=== PATIENT | female | born 1970 | race Caucasian/White ===

== ENCOUNTER → 2016-08-03 | Outpatient (CLI) | payer BC ==
--- NOTE | 2016-08-05 11:36 | MM ---
Reason for exam: screening (asymptomatic). Last mammogram was performed 1 year and 1 month ago. History: Patient is postmenopausal and is nulliparous. Took hormonal contraceptives for 3 years beginning at age 28. Physical Findings: A clinical breast exam by your physician is recommended on an annual basis and results should be correlated with mammographic findings. MG Screening Mammo w CAD Bilateral CC and MLO view(s) were taken. Prior study comparison: July 07, 2015, bilateral MG 3d screening mammo w/cad. October 04, 2009, bilateral digital screening mammogram. The breast tissue is heterogeneously dense. This may lower the sensitivity of mammography. There is no discrete abnormality. ASSESSMENT: Negative, BI-RAD 1 RECOMMENDATION: Routine screening mammogram of both breasts in 1 year.
== END | disposition home or self-care (01) ==
LOC: RADMAMWWP 09:46
PROVIDERS: ATTEND Family Medicine
DX: Z12.31 Encounter for screening mammogram for malignant neoplasm of breast (principal)

== ENCOUNTER → 2017-08-14 | Outpatient (CLI) | payer BC ==
--- NOTE | 2017-08-18 10:56 | MM ---
Reason for exam: screening (asymptomatic). Last mammogram was performed 1 year ago. History: Patient is postmenopausal and is nulliparous. Took hormonal contraceptives for 3 years beginning at age 28. Physical Findings: A clinical breast exam by your physician is recommended on an annual basis and results should be correlated with mammographic findings. MG Screening Mammo w CAD Bilateral CC and MLO view(s) were taken. Prior study comparison: August 03, 2016, bilateral MG screening mammo w CAD. July 07, 2015, bilateral MG 3d screening mammo w/cad. The breast tissue is heterogeneously dense. This may lower the sensitivity of mammography. There is no discrete abnormality. No significant changes when compared with prior studies. ASSESSMENT: Negative, BI-RAD 1 RECOMMENDATION: Routine screening mammogram of both breasts in 1 year.
== END | disposition home or self-care (01) ==
LOC: RADMAMWWP 16:16
PROVIDERS: ATTEND Family Medicine
DX: Z12.31 Encounter for screening mammogram for malignant neoplasm of breast (principal)
CPT/HCPCS: 77067

== ENCOUNTER → 2018-09-25 | Outpatient (CLI) | payer BC ==
--- NOTE | 2018-09-29 13:12 | MM ---
Reason for exam: screening (asymptomatic). Last mammogram was performed 1 year and 1 month ago. History: Patient is postmenopausal and is nulliparous. Took hormonal contraceptives for 3 years beginning at age 28. Physical Findings: A clinical breast exam by your physician is recommended on an annual basis and results should be correlated with mammographic findings. MG Screening Mammo w CAD Bilateral CC and MLO view(s) were taken. Prior study comparison: August 14, 2017, bilateral MG screening mammo w CAD. August 03, 2016, bilateral MG screening mammo w CAD. There are scattered fibroglandular densities. There is no discrete abnormality. No significant changes when compared with prior studies. ASSESSMENT: Negative, BI-RAD 1 RECOMMENDATION: Routine screening mammogram of both breasts in 1 year.
== END | disposition home or self-care (01) ==
LOC: RADMAMWWP 13:22
PROVIDERS: ATTEND Family Medicine
DX: Z12.31 Encounter for screening mammogram for malignant neoplasm of breast (principal)
CPT/HCPCS: 77067

== ENCOUNTER → 2019-12-15 | Outpatient (CLI) | payer BC ==
--- NOTE | 2019-12-16 13:15 | MM ---
Reason for exam: screening (asymptomatic). Last mammogram was performed 1 year and 3 months ago. History: Patient is postmenopausal and is nulliparous. Took hormonal contraceptives for 3 years beginning at age 28. Physical Findings: A clinical breast exam by your physician is recommended on an annual basis and results should be correlated with mammographic findings. MG Screening Mammo w CAD Bilateral CC and MLO view(s) were taken. Prior study comparison: September 25, 2018, bilateral MG screening mammo w CAD. August 14, 2017, bilateral MG screening mammo w CAD. There are scattered fibroglandular densities. No significant changes when compared with prior studies. ASSESSMENT: Benign, BI-RAD 2 RECOMMENDATION: Routine screening mammogram of both breasts in 1 year.
== END | disposition home or self-care (01) ==
LOC: RADMAMWWP 07:20
PROVIDERS: ATTEND Family Medicine
DX: Z12.31 Encounter for screening mammogram for malignant neoplasm of breast (principal)
CPT/HCPCS: 77067

== ENCOUNTER 2020-01-11 08:15 | Day surgery (SDC) | payer BC ==
[2020-01-06 14:40] VITALS: BMI 29.2
[~2020-01-11 08:15] MED LIST: LACTATED RINGERS 1,000 ML IV SCH; LIDOCAINE 1% (10MG/ML) FOR IV START INTRADERMA PRN
[2020-01-11] MEDS ORDERED: LACTATED RINGERS 1,000 ML IV ONE (08:33)
[2020-01-11 08:52] VITALS: RESP 16; TEMP 98.1
[2020-01-11] MEDS ORDERED: PROPOFOL 10 MG/ML 20 ML VIAL IV ONE (09:06)
--- NOTE | 2020-01-11 09:11 | P.GSHP ---
History of Present Illness H&P Date: 01/11/20 Chief Complaint: Colon cancer screening Patient here today for colonoscopy. She has not had a colonoscopy before. No bowel related complaints. No family history of colon cancer. Past Medical History Additional Past Medical History / Comment(s): seasonal allergies History of Any Multi-Drug Resistant Organisms: None Reported Past Surgical History: Hernia Repair Past Anesthesia/Blood Transfusion Reactions: Motion Sickness Smoking Status: Never smoker Medications and Allergies Home Medications Medication Instructions Recorded Confirmed Type No Known Home Medications 01/06/20 01/11/20 History Allergies Allergy/AdvReac Type Severity Reaction Status Date / Time Sulfa (Sulfonamide Allergy Anaphylaxis Verified 01/11/20 08:39 Antibiotics) Surgical - Exam Vital Signs Temp Pulse Resp BP Pulse Ox 98.1 F 96 16 144/75 97 01/11/20 08:50 01/11/20 08:50 01/11/20 08:50 01/11/20 08:50 01/11/20 08:50 Physical exam: General: Well-developed, well-nourished HEENT: Normocephalic, sclerae nonicteric Abdomen: Nontender, nondistended Extremities: No edema Neuro: Alert and oriented Assessment and Plan (1) Colon cancer screening Narrative/Plan: Will proceed with colonoscopy Current Visit: Yes Status: Acute Code(s): Z12.11 - ENCOUNTER FOR SCREENING FOR MALIGNANT NEOPLASM OF COLON SNOMED Code(s): 666782855
--- NOTE | 2020-01-11 09:21 | P.PCN ---
Date of Procedure: 01/11/20 Procedure(s) Performed: PREOPERATIVE DIAGNOSIS: Colon cancer screening POSTOPERATIVE DIAGNOSIS: Normal exam PROCEDURE: Colonoscopy ANESTHESIA: MAC SURGEON: Carl Maradiaga M.D. SPECIMENS: None ENDOSCOPIC PROCEDURE: The patient was placed on the endoscopy table in the left decubitus position. The Olympus colonoscope was inserted into the anus and passed under direct visualization to the base of the cecum. The appendiceal orifice was visualized. From that point the scope was slowly withdrawn inspecti ng all surfaces carefully. There were no neoplastic inflammatory or polypoid lesions throughout the cecum, ascending, transverse, descending, sigmoid and rectum. There was no visible diverticulosis noted. Digital rectal examination was normal. The patient was taken to the recovery room in stable condition per anesthesia guidelines. RECOMMENDATIONS: Increase fiber. Follow-up colonoscopy 10 years.
[2020-01-11 09:28] VITALS: BP 98/68; PULSE 105
== END 2020-01-11 09:59 | disposition home or self-care (01) ==
LOC: ORWHC2ENDO 08:15
PROVIDERS: ATTEND Surgery
DX: Z12.11 Encounter for screening for malignant neoplasm of colon (principal); E66.9 Obesity, unspecified; J30.2 Other seasonal allergic rhinitis; Z88.2 Allergy status to sulfonamides; Z98.890 Other specified postprocedural states; Z68.31 Body mass index [BMI] 31.0-31.9, adult
CPT/HCPCS: J2704; G0121

== ENCOUNTER → 2020-12-28 | Outpatient (CLI) | payer BC ==
--- NOTE | 2020-12-29 09:03 | MM ---
Reason for exam: screening (asymptomatic). Last mammogram was performed 1 year ago. History: Patient is postmenopausal and is nulliparous. Took hormonal contraceptives for 3 years beginning at age 28. Physical Findings: A clinical breast exam by your physician is recommended on an annual basis and results should be correlated with mammographic findings. MG Screening Mammo w CAD Bilateral CC and MLO view(s) were taken. Prior study comparison: December 15, 2019, bilateral MG screening mammo w CAD. September 25, 2018, bilateral MG screening mammo w CAD. August 14, 2017, bilateral MG screening mammo w CAD. July 07, 2015, bilateral MG 3d screening mammo w/cad. There are scattered fibroglandular densities. Stable anterior central asymmetric density left MLO view. No significant changes when compared with prior studies. ASSESSMENT: Negative, BI-RAD 1 RECOMMENDATION: Routine screening mammogram of both breasts in 1 year.
== END | disposition home or self-care (01) ==
LOC: RADMAMWWP 06:59
PROVIDERS: ATTEND Family Medicine
DX: Z12.31 Encounter for screening mammogram for malignant neoplasm of breast (principal); Z78.0 Asymptomatic menopausal state
CPT/HCPCS: 77067

== ENCOUNTER → 2022-01-11 | Outpatient (CLI) | payer BC ==
--- NOTE | 2022-01-14 19:44 | MM ---
Reason for Exam: Screening (asymptomatic). Last mammogram was performed 1 year(s) and 1 month(s) ago. Patient History: Menarche at age 11. Patient has no children. Postmenopausal. Hormonal Contraceptives for 3 years from age 28 until age 31. Risk Values: Joyce 5 year model risk: 1.2%. NCI Lifetime model risk: 9.6%. Prior Study Comparison: 09/25/2018 Bilateral Screening Mammogram, [facility]. 12/15/2019 Bilateral Screening Mammogram, [facility]. 12/28/2020 Bilateral Screening Mammogram, [facility]. Tissue Density: The breast tissue is heterogeneously dense. This may lower the sensitivity of mammography. Findings: Analyzed By CAD. On the right, there is nodular asymmetric density medially at a middle to posterior depth on the cc view that is more defined. Further evaluation is recommended. On the left, there is outer central focal asymmetry at anterior depth that is also more defined. Further evaluation is recommended. Overall Assessment: Incomplete: need additional imaging evaluation, BI-RAD 0 Management: Special View Mammogram of both breasts. 1. On the right, to include spot 3-D CC, 3-D CC rolled lateral, and 3-D LM views. 2. On the left, to include spot 3-D CC, spot 3-D MLO, 3-D lateral views. 3. Targeted ultrasound of either breast if any persisting abnormality. [facility] will attempt to contact patient to return for supplemental views and ultrasound if indicated. Electronically signed and approved by: Ish Blake M.D. Radiologist
== END | disposition home or self-care (01) ==
LOC: RADMAMWWP 09:21
PROVIDERS: ATTEND Family Medicine
DX: Z12.31 Encounter for screening mammogram for malignant neoplasm of breast (principal); Z78.0 Asymptomatic menopausal state
CPT/HCPCS: 77067

== ENCOUNTER → 2022-01-16 | Outpatient (CLI) | payer BC ==
--- NOTE | 2022-01-16 14:22 | MM ---
Reason for Exam: Additional evaluation requested from abnormal screening. Last screening mammogram was performed less than 1 month ago. Patient History: Menarche at age 11. Patient has no children. Postmenopausal. Hormonal Contraceptives for 3 years from age 28 until age 31. Risk Values: Joyce 5 year model risk: 1.2%. NCI Lifetime model risk: 9.6%. Prior Study Comparison: 12/15/2019 Bilateral Screening Mammogram, [facility]. 12/28/2020 Bilateral Screening Mammogram, [facility]. 01/11/2022 Bilateral MG screening mammo w CAD, [facility]. Tissue Density: The breast tissue is heterogeneously dense. This may lower the sensitivity of mammography. Findings: Analyzed By CAD. On the right, the medial asymmetric density disperses on additional views. On the left, the central nodular focal asymmetry also disperses. No suspicious persisting and probably is seen. Findings compatible with superimposition shadow on both sides. Overall Assessment: Benign, BI-RAD 2 Management: Screening Mammogram of both breasts in 1 year. 1. Patient should continue monthly self breast exams. 2. A clinical breast exam by your physician is recommended on an annual basis. 3. This exam should not preclude additional follow-up of suspicious palpable abnormalities. Results were given to the patient verbally at the time of exam. Electronically signed and approved by: Ish Blake M.D. Radiologist
== END | disposition home or self-care (01) ==
LOC: RADMAMWWP 13:26
PROVIDERS: ATTEND Family Medicine
DX: R92.8 Other abnormal and inconclusive findings on diagnostic imaging of breast (principal); Z78.0 Asymptomatic menopausal state
CPT/HCPCS: 77066

== ENCOUNTER → 2023-01-17 | Outpatient (CLI) | payer BC ==
--- NOTE | 2023-01-20 15:26 | MM ---
Reason for Exam: Screening (asymptomatic). Last screening mammogram was performed 12 month(s) ago. Patient History: Menarche at age 11. Patient has no children. Postmenopausal. Hormonal Contraceptives for 3 years from age 28 until age 31. Risk Values: Joyce 5 year model risk: 1.2%. NCI Lifetime model risk: 9.4%. Prior Study Comparison: 08/03/2016 Bilateral Screening Mammogram, [facility]. 08/14/2017 Bilateral Screening Mammogram, [facility]. 09/25/2018 Bilateral Screening Mammogram, [facility] 12/15/2019 Bilateral Screening Mammogram, [facility]. 12/28/2020 Bilateral Screening Mammogram, [facility] 01/11/2022 Bilateral MG screening mammo w CAD, [facility]. 01/16/2022 Bilateral MG work up mamm w CAD BILAT, [facility]. Tissue Density: The breast tissue is heterogeneously dense. This may lower the sensitivity of mammography. Findings: Analyzed By CAD. Pattern appears symmetrical and stable. No significant interval change is evident. Benign calcifications within the left breast. No suspicious groups of microcalcifications, spiculated or lobular masses, architectural distortion or other secondary signs of malignancy are mammographically apparent. Overall Assessment: Benign, BI-RAD 2 Management: Screening Mammogram of both breasts in 1 year. A negative mammogram report should not preclude additional follow up of suspicious palpable abnormalities. Patient should continue monthly self breast exam. A clinical breast exam by your physician is recommended on an annual basis and results should be correlated with mammographic findings. Electronically signed and approved by: Arthur Ramos D.O. Radiologis
== END | disposition home or self-care (01) ==
LOC: RADMAMWWP 08:34
PROVIDERS: ATTEND Family Medicine
DX: Z12.31 Encounter for screening mammogram for malignant neoplasm of breast (principal); Z78.0 Asymptomatic menopausal state
CPT/HCPCS: 77067

== ENCOUNTER → 2024-01-23 | Outpatient (CLI) | payer BC ==
--- NOTE | 2024-02-09 11:04 | MM ---
Reason for Exam: Screening (asymptomatic). Last screening mammogram was performed 12 month(s) ago. Patient History: Menarche at age 11. Patient has no children. Postmenopausal. Hormonal Contraceptives for 3 years from age 28 until age 31. Risk Values: Joyce 5 year model risk: 1.3%. NCI Lifetime model risk: 9.3%. Prior Study Comparison: 01/11/2022 Bilateral MG screening mammo w CAD, [facility]. 01/16/2022 Bilateral MG work up mamm w CAD BILAT, [facility]. 01/17/2023 Bilateral MG screening mammo w CAD, [facility]. Tissue Density: The breasts are heterogeneously dense, which may obscure small masses. Findings: Analyzed By CAD. There is no suspicious group of microcalcifications or new suspicious mass in either breast. New asymmetric density seen on the left MLO view 6.6 cm from the nipple above the level of the nipple. Additional views are recommended. Overall Assessment: Incomplete: need additional imaging evaluation, BI-RAD 0 Management: Diagnostic Mammogram of the left breast. . Patient should continue monthly self-breast exams. A clinical breast exam by your physician is recommended on an annual basis. This exam should not preclude additional follow-up of suspicious palpable abnormalities. Note on Joyce scores and lifetime risk: 1. A Joyce score greater than 3% is considered moderate risk. If this is the case, consider specialist referral to assess eligibility for a risk reducing agent. 2. If overall lifetime risk for the development of breast cancer is 20% or higher, the patient may qualify for future screening with alternating mammogram and breast MRI. Electronically signed and approved by: Carlos Riggins M.D. Radiologis
== END | disposition home or self-care (01) ==
LOC: RADMAMWWP 13:15
PROVIDERS: ATTEND Family Medicine
DX: Z12.31 Encounter for screening mammogram for malignant neoplasm of breast (principal); R92.333 Mammographic heterogeneous density, bilateral breasts; Z78.0 Asymptomatic menopausal state
CPT/HCPCS: 77067

== ENCOUNTER → 2024-07-30 | Outpatient (CLI) | payer BC ==
--- NOTE | 2024-08-03 12:32 | MM ---
Reason for Exam: Follow-up at short interval from prior study. Last screening mammogram was performed 6 month(s) ago. Patient History: Menarche at age 11. Patient has no children. Postmenopausal. Hormonal Contraceptives for 3 years from age 28 until age 31. Risk Values: Joyce 5 year model risk: 1.3%. NCI Lifetime model risk: 9.1%. Prior Study Comparison: 01/16/2022 Bilateral MG work up mamm w CAD BILAT, [facility]. 01/17/2023 Bilateral MG screening mammo w CAD, [facility]. 01/23/2024 Bilateral MG screening mammo w CAD, [facility]. Tissue Density: Left: There are scattered areas of fibroglandular density. Findings: Analyzed By CAD. Area of concern/asymmetry compresses out on spot compression imaging. No suspicious masses, calcifications or distortions. Overall Assessment: Benign, BI-RAD 2 Management: Screening Mammogram of both breasts in 1 year. Results were given to the patient verbally at the time of exam. Patient should continue monthly self-breast exams. A clinical breast exam by your physician is recommended on an annual basis. This exam should not preclude additional follow-up of suspicious palpable abnormalities. Note on Joyce scores and lifetime risk: 1. A Joyce score greater than 3% is considered moderate risk. If this is the case, consider specialist referral to assess eligibility for a risk reducing agent. 2. If overall lifetime risk for the development of breast cancer is 20% or higher, the patient may qualify for future screening with alternating mammogram and breast MRI. [facility], , 07/30/2024 1:17 PM. Electronically signed and approved by: Simone Guzman DO
== END | disposition home or self-care (01) ==
LOC: RADMAMWWP 12:47
PROVIDERS: ATTEND Family Medicine
DX: R92.8 Other abnormal and inconclusive findings on diagnostic imaging of breast (principal); R92.322 Mammographic fibroglandular density, left breast; Z78.0 Asymptomatic menopausal state
CPT/HCPCS: 77061; 77065